=== PATIENT | female | born 1960 | race Caucasian/White ===

== ENCOUNTER → 2016-06-13 | Outpatient (CLI) | payer OTHER ==
[2016-06-13 09:22] LABS: BLOOD, URINE NEG (NEG); GLUCOSE,URINE NEG (NEG); KETONE, URINE NEG (NEG); NITRITE,URINE NEG (NEG); SQUAMOUS EPITHELIAL CELL URINE <1 /hpf (0-5); URINE COLOR YELLOW (YELLW/STRAW)
[2016-06-13 09:30] LABS: AUTOMATED NEUTROPHIL # 3.7 TH/MM3 (1.8-7.7); BASOPHIL # 0.1 TH/MM3 (0-0.2); BASOPHIL % 1.3 % (0.0-2.0); EOSINOPHIL # 0.6 TH/MM3 (0-0.4); EOSINOPHIL % 8.4 % (0.0-4.0); HEMATOCRIT 28.4 % (35.0-46.0); HEMO FLAGS DIFF FINAL; LYMPH % 36.4 % (9.0-44.0); LYMPHOCYTE # 2.7 TH/MM3 (1.0-4.8); MEAN CELL VOLUME 87.6 FL (80.0-100.0); MEAN CORPUSCULAR HEMOGLOBIN 29.4 PG (27.0-34.0); MEAN CORPUSCULAR HGB CONC 33.5 % (32.0-36.0); NEUT % 49.9 % (16.0-70.0); PLATELET COUNT 305 TH/MM3 (150-450); RED BLOOD COUNT 3.24 MIL/MM3 (4.00-5.30); RED CELL DISTRIBUTION WIDTH 13.2 % (11.6-17.2); WHITE BLOOD COUNT 7.4 TH/MM3 (4.0-11.0)
[2016-06-13 09:38] LABS: ALKALINE PHOSPHATASE 52 U/L (45-117); ALT (GPT) 25 U/L (10-53); ANION GAP 8 MEQ/L (5-15); AST (GOT) 14 U/L (15-37); BICARBONATE 26.8 MEQ/L (21.0-32.0); BLOOD UREA NITROGEN 24 MG/DL (7-18); CHLORIDE 106 MEQ/L (98-107); GLOMERULAR FILTRATION RATE 44 ML/MIN (>89); GLUCOSE,FASTING 104 MG/DL (74-99); HDL CHOLESTEROL 51.4 MG/DL (40.0-60.0); LDL CHOLESTEROL 84 MG/DL (0-99); POTASSIUM 4.2 MEQ/L (3.5-5.1); SODIUM (NA) 141 MEQ/L (136-145); TOTAL BILIRUBIN ADULT 0.2 MG/DL (0.2-1.0)
[2016-06-13 16:50] LABS: HEMOGLOBIN Ao 84.3 %; HEMOGLOBIN LA1C 2.1 %
== END ==
LOC: PLAB 07:19
PROVIDERS: ATTEND Internal Medicine
DX: I10 Essential (primary) hypertension (principal); E55.9 Vitamin D deficiency, unspecified; E78.5 Hyperlipidemia, unspecified; E03.9 Hypothyroidism, unspecified; D64.9 Anemia, unspecified; Z79.899 Other long term (current) drug therapy
CPT/HCPCS: 80053; 80061; 81001; 82306; 83036; 84436; 84443; 85025

== ENCOUNTER → 2017-01-18 | Outpatient (CLI) | payer OTHER ==
[2017-01-18 10:18] LABS: HEMATOCRIT 28.4 % (35.0-46.0); MEAN CELL VOLUME 88.6 FL (80.0-100.0); MEAN CORPUSCULAR HEMOGLOBIN 29.8 PG (27.0-34.0); MEAN CORPUSCULAR HGB CONC 33.7 % (32.0-36.0); PLATELET COUNT 318 TH/MM3 (150-450); RED CELL DISTRIBUTION WIDTH 13.3 % (11.6-17.2); REVIEW FLAG FINAL; WHITE BLOOD COUNT 7.7 TH/MM3 (4.0-11.0)
[2017-01-18 10:31] LABS: ANION GAP 8 MEQ/L (5-15); BICARBONATE 24.7 MEQ/L (21.0-32.0); BLOOD UREA NITROGEN 20 MG/DL (7-18); CHLORIDE 105 MEQ/L (98-107); GLOMERULAR FILTRATION RATE 46 ML/MIN (>89); GLUCOSE,FASTING 69 MG/DL (74-99); POTASSIUM 4.1 MEQ/L (3.5-5.1); SODIUM (NA) 138 MEQ/L (136-145)
[2017-01-18 10:35] LABS: HDL CHOLESTEROL 55.1 MG/DL (40.0-60.0); LDL CHOLESTEROL 65 MG/DL (0-99)
[2017-01-18 10:38] LABS: BLOOD, URINE NEG (NEG); GLUCOSE,URINE NEG (NEG); KETONE, URINE NEG (NEG); MUCUS URINE FEW /lpf (OCC); NITRITE,URINE NEG (NEG); PH, URINE 5.5 (5.0-8.5); SQUAMOUS EPITHELIAL CELL URINE <1 /hpf (0-5); URINE COLOR YELLOW (YELLW/STRAW)
[2017-01-18 16:31] LABS: HEMOGLOBIN Ao 84.4 %; HEMOGLOBIN LA1C 1.9 %; HEMOGLOBIN P3 3.9 %
== END ==
LOC: PLAB 07:08
DX: E11.9 Type 2 diabetes mellitus without complications (principal); D64.9 Anemia, unspecified; E78.5 Hyperlipidemia, unspecified
CPT/HCPCS: 80048; 80061; 81001; 83036; 85027

== ENCOUNTER → 2017-08-15 | Outpatient (CLI) | payer OTHER ==
[2017-08-15 10:19] LABS: HEMATOCRIT 29.7 % (35.0-46.0); HEMOGLOBIN 9.7 GM/DL (11.6-15.3); MEAN CELL VOLUME 87.8 FL (80.0-100.0); MEAN CORPUSCULAR HEMOGLOBIN 28.6 PG (27.0-34.0); MEAN CORPUSCULAR HGB CONC 32.6 % (32.0-36.0); MEAN PLATELET VOLUME 7.4 FL (7.0-11.0); PLATELET COUNT 330 TH/MM3 (150-450); RED BLOOD COUNT 3.39 MIL/MM3 (4.00-5.30); RED CELL DISTRIBUTION WIDTH 13.8 % (11.6-17.2); WHITE BLOOD COUNT 7.4 TH/MM3 (4.0-11.0)
[2017-08-15 10:26] LABS: AST (GOT) 19 U/L (15-37); BICARBONATE 24.5 MEQ/L (21.0-32.0); BLOOD UREA NITROGEN 19 MG/DL (7-18); CALCIUM 9.1 MG/DL (8.5-10.1); CHLORIDE 107 MEQ/L (98-107); CHOLESTEROL 144 MG/DL (120-200); CREATININE 1.29 MG/DL (0.50-1.00); GLOMERULAR FILTRATION RATE 43 ML/MIN (>89); GLUCOSE,FASTING 51 MG/DL (74-99); SODIUM (NA) 140 MEQ/L (136-145)
[2017-08-15 10:35] LABS: BILIRUBIN, URINE NEG (NEG); BLOOD, URINE NEG (NEG); GLUCOSE,URINE NEG (NEG); KETONE, URINE NEG (NEG); NITRITE,URINE NEG (NEG); RENAL EPITHELIAL CELLS <1 /hpf; SQUAMOUS EPITHELIAL CELL URINE <1 /hpf (0-5); URINE COLOR LIGHT-YELLOW (YELLW/STRAW); URINE LEUKOCYTE ESTERASE NEG (NEG)
[2017-08-15 10:54] LABS: ALKALINE PHOSPHATASE 58 U/L (45-117); ALT (GPT) 25 U/L (10-53); CHOLESTEROL/ HDL RATIO 3.01 RATIO; HDL CHOLESTEROL 47.8 MG/DL (40.0-60.0); LDL CHOLESTEROL 70 MG/DL (0-99); THYROXINE (T4) 12.8 MCG/DL (4.8-13.9); TOTAL BILIRUBIN ADULT 0.2 MG/DL (0.2-1.0); TOTAL PROTEIN 7.5 GM/DL (6.4-8.2); TRIGLYCERIDES 133 MG/DL (42-150)
[2017-08-15 11:00] LABS: FOLATE GREATER THAN 20.0 NG/ML (3.1-17.5)
[2017-08-15 15:43] LABS: HEMOGLOBIN A1C 6.1 % (4.3-6.0)
== END ==
LOC: PLAB 07:24
DX: I10 Essential (primary) hypertension (principal); E78.5 Hyperlipidemia, unspecified; M81.8 Other osteoporosis without current pathological fracture; Z79.899 Other long term (current) drug therapy; E03.9 Hypothyroidism, unspecified; D64.9 Anemia, unspecified
CPT/HCPCS: 36415; 80053; 80061; 81001; 82043; 82306; 82607; 82746; 83036; 84436; 84443; 85027